=== PATIENT | female | born 1965 | race Caucasian/White ===

== ENCOUNTER → 2017-10-18 | Day surgery (SDC) | payer OTHER ==
[~2017-10-18] VITALS: Ht 162.6 cm; Wt 51.7 kg
[~2017-10-18] MED LIST: BUPROPION HCL150 M4 PO
[2017-10-18 10:34] LABS: ABSOLUTE BASOPHIL COUNT 0.1 /CUMM (0.0-0.2); ABSOLUTE EOSINOPHIL COUNT 0.1 /CUMM (0.0-0.7); ABSOLUTE GRANULOCYTE CT 7.2 /CUMM (1.4-6.5); ABSOLUTE LYMPH COUNT 2.5 /CUMM (1.2-3.4); ABSOLUTE MONOCYTE COUNT 0.8 /CUMM (0.10-0.60); BASOPHIL % 0.5 % (0.0-2.0); EOSINOPHIL % 0.8 % (0-5); GRANULOCYTE % 67.2 % (42.2-75.2); MEAN CORPUSCULAR HGB 32.3 PG (27.0-31.0); MEAN CORPUSCULAR HGB CONC 34.2 G/DL (33.0-37.0); MEAN CORPUSCULAR VOLUME 94.5 FL (81.0-99.0); MEAN PLATELET VOLUME 7.8 FL (7.4-10.4); PLATELET COUNT 298 /CUMM (130-400); RBC DISTRIBUTION WIDTH 13.9 % (11.5-14.5); RED BLOOD CELL CT 4.44 /CUMM (4.20-5.40); WHITE BLOOD CELL COUNT 10.7 /CUMM (4.8-10.8)
--- NOTE | 2017-10-18 12:59 | Operative Report ---
Operative/Inv Procedure Report Surgery Date: 10/18/17 Name of Procedure: Cervical conization Dx Hysteroscopy and endometrial biopsy Pre-Operative Diagnosis: Abnormal pap and abnormal ECC Postmenopausal bleeding Post-Operative Diagnosis: Abnormal pap Uterine atrophy Estimated Blood Loss: scant Surgeon/Transformation Analyst: Efraín Gilmore MD Anesthesia: local monitored anesthesi, Cervical block Monitors: Per Anesthesiology IV Fluids: 500 Implants: NA Urine Output: 80 Drains: NA Specimens: 1) Cervical cone (length appx 4 cm) 2) ECC 3) Endometrial biopsy Microbiology: NA Complications: None Condition: Stable to RR Operative Indication: 52 year old female with 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 S/p colposcopy with negative 4 quadrant biopsy however ECC positive for abnormal cells. Also with postmenopausal bleeding with EE on US of 1.8 mm. Consent for cervical conization obtained and HSC with biopsy obtained. Risks of pain, bleeding, infection, uterine perforation, vte, anesthesiology side effects /risks and potential need for additional procedure if pathology returns as abnormal. All questions answered. Operative/Procedure Note Note: Patient brought to OR and prepped in usual sterile fashion. She was placed in lithotomy position. Alps were placed as well and she was grounded for electrocautery use. Time out done prior to start of case. Bladder catheterized of 80 cc clear urine No vulvar lesions noted No gross cervical lesions noted Decreased update of lugol's soln noted at 12 oclock on ectocervix. On HSC noted atrophic cavity and no polyp nor myoma. Stay sutures placed at 3 and 9 oclock with 0 vicryl. Lidocaine with epinephrine injected at 12, 2, 6, 10 oclock with total of 10 cc given. An 11 blade was used for the cone procedure and cervical portion was resected in a circumferencial pattern. Depth of 4 cm obtained. This was sent to pathology. Cx dilated to size 12 with chad dilators and diagnostic hsc placed in to cavity. Uterus distended with 500 cc saline. No poylp nor myoma nor abnormal appearing tissue visualized. Appeared atrophic. Scope removed. ECC and Endometrial biopsy done. Bed of cervix was hemostatic with use of roller ball. Monsels applied to cervical bed to reduce potential delayed bleeding. Stay sutures cut. No active bleeding. Instruments removed. Count correct x 2. Taken out of lithotomy position and taken to RR in stable condition. Postoperative findings explained to patient and postoperative expectations reviewed with family as well. Follow up 7-10 days to review pathology findings.
== END ==
LOC: STS 00:51
PROVIDERS: Obstetrics & Gynecology
DX: D06.0 Carcinoma in situ of endocervix (principal); B97.7 Papillomavirus as the cause of diseases classified elsewhere; N95.0 Postmenopausal bleeding; N85.8 Other specified noninflammatory disorders of uterus; Z80.3 Family history of malignant neoplasm of breast; F17.200 Nicotine dependence, unspecified, uncomplicated
CPT/HCPCS: 36415; 81025; J0131; J1100; J1885; J2250; J2405